=== PATIENT | male | born 1955 | race American Indian/Alaskan Native ===

== ENCOUNTER 2022-10-07 04:43 | Emergency (ER) | payer MEDICARE ==
[2022-10-07 05:00] VITALS: BP 190/87; PULSE 91
[2022-10-07 06:03] LABS: ESTIMATED GFR 103 mL/min (>60)
[2022-10-07 06:04] LABS: TROPONIN I HIGH SENSITIVITY 87.2 pg/mL (<=60.3)
[2022-10-07] MEDS ORDERED: LORazepam 1 MG Tab PO ONE (06:45)
== END 2022-10-07 06:56 | disposition home or self-care (01) ==
LOC: JP.ED 04:43
DX: M54.2 Cervicalgia (principal); G89.29 Other chronic pain; G56.90 Unspecified mononeuropathy of unspecified upper limb
CPT/HCPCS: 36415; 71046; 72040; 80053; 84443; 84484; 85025; 86140; 93005; 99284; A9270

== ENCOUNTER 2023-05-05 19:39 | Emergency (ER) | payer MEDICARE ==
[2023-05-05] MEDS ORDERED: Morphine 2 MG/ML SYRINGE IVPUSH ONE ×2 (19:43→20:29)
[2023-05-05] MEDS ORDERED: Naloxone 0.4 MG/ML SDV IVPUSH PRN ×2 (19:43→20:29)
[2023-05-05 19:45] LABS: BASOPHILS ABSOLUTE AUTO 0.05 K/uL (0.00-0.10); BASOPHILS PERCENT AUTO 0.3 % (0.1-1.3); EOSINOPHILS ABSOLUTE AUTO 0.18 K/uL (0.00-0.40); EOSINOPHILS PERCENT AUTO 1.2 % (0.0-5.4); HEMATOCRIT 36.9 % (38.4-49.7); HEMOGLOBIN 12.5 g/dL (12.9-16.9); IMMATURE GRAN PERCENT AUTO 0.8 % (0.0-0.7); LYMPHOCYTES ABSOLUTE AUTO 1.77 K/uL (0.8-3.3); LYMPHOCYTES PERCENT AUTO 12.1 % (11.4-47.7); MEAN CORPUSCULAR HEMOGLOBIN 30.6 pg (31.6-35.5); MEAN CORPUSCULAR HGB CONC 33.9 g/dL (31.6-35.5); MEAN CORPUSCULAR VOLUME 90.2 fL (81.4-99.0); MONOCYTES PERCENT AUTO 6.2 % (3.3-12.6); NEUTROPHILS ABSOLUTE AUTO 11.61 K/uL (1.0-7.6); NEUTROPHILS PERCENT AUTO 79.4 % (40.0-78.1); PLATELET COUNT,PLT 193 K/uL (130-375); RED BLOOD CELL COUNT 4.09 M/uL (4.14-5.76); WHITE BLOOD CELL COUNT,WBC 14.6 K/uL (3.2-11.0)
[2023-05-05 19:46] LABS: IMMATURE GRAN ABSOLUTE AUTO 0.11 K/uL (0.00-0.23)
[2023-05-05 20:09] LABS: ANION GAP 14.7 mmol/L (5.0-14.0); CALCIUM 8.3 mg/dL (8.5-10.1); CREATININE 0.8 mg/dL (0.8-1.3); EST CRCL DRUG DOSING (CG) 83.07 mL/min; POTASSIUM,K 4.7 mmol/L (3.6-5.2)
[2023-05-05] MEDS ORDERED: Heparin Sodium 5,000 Units/ML Vial IVPUSH ONE (20:25)
[2023-05-05] MEDS ORDERED: atorvaSTATin 20 MG Tab PO ONE (20:25)
[2023-05-05 20:57] VITALS: BP 117/66; PULSE 83
[2023-05-05] MEDS ORDERED: Heparin Sodium/D5W 25,000 UNITS/500 ML BAG IV SCH (21:00)
== END 2023-05-05 21:05 | disposition other institution (70) ==
LOC: JP.ED 19:39
DX: I21.3 ST elevation (STEMI) myocardial infarction of unspecified site (principal); I10 Essential (primary) hypertension; J44.9 Chronic obstructive pulmonary disease, unspecified; F17.210 Nicotine dependence, cigarettes, uncomplicated; Z79.01 Long term (current) use of anticoagulants; Z91.041 Radiographic dye allergy status
CPT/HCPCS: 36415; 71045; 71045-26; 80048; 84484; 85025; 93005; 93010; 96374; 96375; 96376; 99285; 99285-25; A9270-GY; J1644; J2270

== ENCOUNTER 2023-05-07 04:14 | Emergency (ER) | payer MEDICARE ==
[2023-05-07 04:27] LABS: BASOPHILS PERCENT AUTO 0.1 % (0.1-1.3); HEMATOCRIT 33.1 % (38.4-49.7); HEMOGLOBIN 11.3 g/dL (12.9-16.9); IMMATURE GRAN PERCENT AUTO 0.6 % (0.0-0.7); MEAN CORPUSCULAR HEMOGLOBIN 30.2 pg (31.6-35.5); MEAN CORPUSCULAR HGB CONC 34.1 g/dL (31.6-35.5); MEAN CORPUSCULAR VOLUME 88.5 fL (81.4-99.0); MONOCYTES ABSOLUTE AUTO 1.03 K/uL (0.20-0.90); MONOCYTES PERCENT AUTO 6.2 % (3.3-12.6); NEUTROPHILS ABSOLUTE AUTO 14.54 K/uL (1.0-7.6); NEUTROPHILS PERCENT AUTO 87.1 % (40.0-78.1); PLATELET COUNT,PLT 187 K/uL (130-375); RED BLOOD CELL COUNT 3.74 M/uL (4.14-5.76); WHITE BLOOD CELL COUNT,WBC 16.7 K/uL (3.2-11.0)
[2023-05-07 04:28] LABS: BASOPHILS ABSOLUTE AUTO 0.02 K/uL (0.00-0.10)
[2023-05-07] MEDS ORDERED: diphenhydrAMINE 50 MG/ML SDV IVPUSH ONE (04:50)
[2023-05-07 04:51] LABS: ANION GAP 17.5 mmol/L (5.0-14.0); CALCIUM 8.3 mg/dL (8.5-10.1); CREATININE 0.8 mg/dL (0.8-1.3); EST CRCL DRUG DOSING (CG) 83.07 mL/min; POTASSIUM,K 3.5 mmol/L (3.6-5.2)
[2023-05-07] MEDS ORDERED: Iopamidol 755 Mg/ML 100 ML Bottle IV STA (05:06)
[2023-05-07] MEDS ORDERED: Sodium Chloride 0.9% 100 ML IV STA (05:07)
[2023-05-07] MEDS ORDERED: Naloxone 0.4 MG/ML SDV IVPUSH PRN (06:40)
[2023-05-07] MEDS ORDERED: HYDROmorphone 0.5 MG/0.5 ML Syringe IVPUSH ONE (06:40)
[2023-05-07 07:51] VITALS: BP 110/72; PULSE 92
[2023-05-07] MEDS ORDERED: Lidocaine 4% Top Soln 50 ML Bottle MUCMEM ONE (08:15)
== END 2023-05-07 11:20 | disposition left against medical advice (07) ==
LOC: JP.ED 04:14
DX: K56.609 Unspecified intestinal obstruction, unspecified as to partial versus complete obstruction (principal); I10 Essential (primary) hypertension; J44.9 Chronic obstructive pulmonary disease, unspecified; I25.2 Old myocardial infarction; F17.210 Nicotine dependence, cigarettes, uncomplicated; Z79.82 Long term (current) use of aspirin; Z79.899 Other long term (current) drug therapy; Z91.041 Radiographic dye allergy status
CPT/HCPCS: 36415; 74175; 80048; 84484; 85025; 93005; 93010; 96374; 96375; 99285; 99285-25; J1170; J1200; J3490; Q9967

== ENCOUNTER 2023-05-08 02:40 | Emergency (ER) | payer MEDICARE ==
[2023-05-08 02:58] LABS: BASOPHILS ABSOLUTE AUTO 0.02 K/uL (0.00-0.10); BASOPHILS PERCENT AUTO 0.1 % (0.1-1.3); EOSINOPHILS ABSOLUTE AUTO 0.01 K/uL (0.00-0.40); EOSINOPHILS PERCENT AUTO 0.1 % (0.0-5.4); HEMATOCRIT 32.2 % (38.4-49.7); HEMOGLOBIN 10.9 g/dL (12.9-16.9); IMMATURE GRAN ABSOLUTE AUTO 0.07 K/uL (0.00-0.23); IMMATURE GRAN PERCENT AUTO 0.5 % (0.0-0.7); LYMPHOCYTES PERCENT AUTO 9.1 % (11.4-47.7); MEAN CORPUSCULAR HEMOGLOBIN 30.4 pg (31.6-35.5); MEAN CORPUSCULAR HGB CONC 33.9 g/dL (31.6-35.5); MEAN CORPUSCULAR VOLUME 89.7 fL (81.4-99.0); MONOCYTES ABSOLUTE AUTO 0.94 K/uL (0.20-0.90); MONOCYTES PERCENT AUTO 6.6 % (3.3-12.6); NEUTROPHILS ABSOLUTE AUTO 11.89 K/uL (1.0-7.6); NEUTROPHILS PERCENT AUTO 83.6 % (40.0-78.1); PLATELET COUNT,PLT 183 K/uL (130-375); RED BLOOD CELL COUNT 3.59 M/uL (4.14-5.76); WHITE BLOOD CELL COUNT,WBC 14.2 K/uL (3.2-11.0)
[2023-05-08 03:22] LABS: ALANINE AMINOTRANSFERASE,ALT 32 U/L (12-78); ALBUMIN 3.1 g/dL (3.4-5.0); ALKALINE PHOSPHATASE 59 U/L (46-116); ASPARTATE AMNIOTRANSFERASE,AST 36 U/L (15-37); BILIRUBIN TOTAL 0.7 mg/dL (0.2-1.0); BLOOD UREA NITROGEN,BUN 22 mg/dL (7-18); C-REACTIVE PROTEIN 1.49 mg/dL (0.0-0.3); CALCIUM 8.2 mg/dL (8.5-10.1); CARBON DIOXIDE,CO2 26 mmol/L (21-32); CHLORIDE,CL 103 mmol/L (100-108); CREATININE 0.8 mg/dL (0.8-1.3); EST CRCL DRUG DOSING (CG) 83.07 mL/min; ESTIMATED GFR 98 mL/min (>60); GLUCOSE RANDOM 135 mg/dL (74-106); POTASSIUM,K 3.5 mmol/L (3.6-5.2); PROTEIN TOTAL,TP 6.3 g/dL (6.4-8.2); SODIUM,NA 139 mmol/L (140-148)
[2023-05-08 03:25] LABS: ANION GAP 13.5 mmol/L (5.0-14.0)
[2023-05-08] MEDS ORDERED: Acetaminophen 1,000 MG in Premix Bag 1 BAG IV ONE (03:31)
[2023-05-08] MEDS ORDERED: Lidocaine 4% Top Soln 50 ML Bottle MUCMEM ONE (03:44)
[2023-05-08] MEDS ORDERED: Lidocaine 2% Jelly 10 ML Urojet MUCMEM ONE (04:26)
[2023-05-08] MEDS: Lidocaine 2% Jelly 10 ML Urojet ONE ×2 (04:26→04:27)
[2023-05-08] MEDS ORDERED: LORazepam 2 MG/ML SDV ONE (04:39)
[2023-05-08] MEDS ORDERED: LORazepam 2 MG/ML SDV IVPUSH ONE ×2 (04:39→06:38)
[2023-05-08] MEDS ORDERED: Phenol/Sodium Phenolate Spray 180 ML Bottle MUCMEM PRN (04:59)
[2023-05-08] MEDS ORDERED: Benzocaine/Cetylpyridinium/Menthol Lozenge MUCMEM ONE (04:59)
[2023-05-08 06:14] VITALS: PULSE 77
[2023-05-08] MEDS ORDERED: Sodium Chloride 0.9% 1,000 ML IV SCH (06:15)
[2023-05-08 06:45] VITALS: BP 118/79
== END 2023-05-08 07:22 ==
LOC: JP.ED 02:40
DX: K56.609 Unspecified intestinal obstruction, unspecified as to partial versus complete obstruction (principal); I10 Essential (primary) hypertension; I25.2 Old myocardial infarction; J44.9 Chronic obstructive pulmonary disease, unspecified; Z91.041 Radiographic dye allergy status; Z79.01 Long term (current) use of anticoagulants; Z79.899 Other long term (current) drug therapy; Z79.82 Long term (current) use of aspirin
CPT/HCPCS: 36415; 43752; 74018; 74018-26; 74176; 80053; 83605; 84484; 85025; 86140; 93005; 93010; 96361; 96365; 96375; 96376; 99284; 99285-25; A9270-GY; J0131; J2060; J7030

== ENCOUNTER 2023-06-06 06:43 | Emergency (ER) | payer MEDICARE ==
[2023-06-06 06:51] VITALS: BP 121/62
[2023-06-06] MEDS ORDERED: Albuterol/Ipratropium 3.0-0.5 MG/3 ML Neb Soln NEB ONE (07:45)
[2023-06-06 07:56] LABS: BASE EXCESS VENOUS 0.4 mm/L; BICARBONATE,VENOUS 23.8 mmol/L; CARBOXYHEMOGLOBIN 4.2 % (0.0-1.6); METHEMOGLOBIN 0.9 %; O2 SATURATION VENOUS 37.5; OXYHEMOGLOBIN 35.6 %; PCO2 VENOUS 35.5 mm/Hg; PH,VENOUS 7.441 (7.350-7.450); TOTAL HEMOGLOBIN 11.7 g/dL (13.5-18.0)
[2023-06-06 07:57] LABS: PO2 VENOUS 22.3 mm/Hg
[2023-06-06 07:58] LABS: BASOPHILS ABSOLUTE AUTO 0.03 K/uL (0.00-0.10); BASOPHILS PERCENT AUTO 0.3 % (0.1-1.3); EOSINOPHILS ABSOLUTE AUTO 0.11 K/uL (0.00-0.40); EOSINOPHILS PERCENT AUTO 1.2 % (0.0-5.4); HEMATOCRIT 34.1 % (38.4-49.7); HEMOGLOBIN 11.3 g/dL (12.9-16.9); IMMATURE GRAN ABSOLUTE AUTO 0.03 K/uL (0.00-0.23); IMMATURE GRAN PERCENT AUTO 0.3 % (0.0-0.7); LYMPHOCYTES ABSOLUTE AUTO 1.06 K/uL (0.8-3.3); LYMPHOCYTES PERCENT AUTO 11.7 % (11.4-47.7); MEAN CORPUSCULAR HEMOGLOBIN 29.7 pg (31.6-35.5); MEAN CORPUSCULAR HGB CONC 33.1 g/dL (31.6-35.5); MEAN CORPUSCULAR VOLUME 89.5 fL (81.4-99.0); MONOCYTES ABSOLUTE AUTO 0.54 K/uL (0.20-0.90); NEUTROPHILS ABSOLUTE AUTO 7.28 K/uL (1.0-7.6); NEUTROPHILS PERCENT AUTO 80.5 % (40.0-78.1); PLATELET COUNT,PLT 157 K/uL (130-375); RED BLOOD CELL COUNT 3.81 M/uL (4.14-5.76); WHITE BLOOD CELL COUNT,WBC 9.1 K/uL (3.2-11.0)
[2023-06-06 07:59] VITALS: PULSE 81
[2023-06-06 08:16] LABS: ANION GAP 12.4 mmol/L (5.0-14.0); C-REACTIVE PROTEIN 0.74 mg/dL (<0.50); CALCIUM 8.5 mg/dL (8.5-10.1); CREATININE 0.7 mg/dL (0.8-1.3); EST CRCL DRUG DOSING (CG) 94.94 mL/min
== END 2023-06-06 09:37 | disposition home or self-care (01) ==
LOC: JP.ED 06:43
DX: F41.9 Anxiety disorder, unspecified (principal); I10 Essential (primary) hypertension; I25.2 Old myocardial infarction; J44.9 Chronic obstructive pulmonary disease, unspecified; F17.210 Nicotine dependence, cigarettes, uncomplicated; Z95.5 Presence of coronary angioplasty implant and graft; Z79.82 Long term (current) use of aspirin; Z79.899 Other long term (current) drug therapy; Z91.041 Radiographic dye allergy status
CPT/HCPCS: 36415; 71046; 71046-26; 80048; 82803; 83605; 85025; 86140; 94640; 99285; J7620

== ENCOUNTER 2023-06-14 01:56 | Inpatient (IN) | payer MEDICARE ==
[2023-06-14] MEDS ORDERED: Sodium Chloride 0.9% 10 ML Syringe FLUSH PRN (01:57)
[2023-06-14] MEDS ORDERED: Dexamethasone 4 MG/ML SDV IVPUSH ONE (02:00)
[2023-06-14] MEDS ORDERED: Albuterol/Ipratropium 3.0-0.5 MG/3 ML Neb Soln NEB ONE (02:00)
[2023-06-14 02:04] LABS: BASOPHILS ABSOLUTE AUTO 0.06 K/uL (0.00-0.10); BASOPHILS PERCENT AUTO 0.8 % (0.1-1.3); EOSINOPHILS ABSOLUTE AUTO 0.17 K/uL (0.00-0.40); EOSINOPHILS PERCENT AUTO 2.3 % (0.0-5.4); HEMATOCRIT 35.9 % (38.4-49.7); HEMOGLOBIN 11.5 g/dL (12.9-16.9); IMMATURE GRAN ABSOLUTE AUTO 0.03 K/uL (0.00-0.23); IMMATURE GRAN PERCENT AUTO 0.4 % (0.0-0.7); LYMPHOCYTES ABSOLUTE AUTO 1.29 K/uL (0.8-3.3); LYMPHOCYTES PERCENT AUTO 17.2 % (11.4-47.7); MEAN CORPUSCULAR HEMOGLOBIN 28.8 pg (31.6-35.5); MONOCYTES ABSOLUTE AUTO 0.53 K/uL (0.20-0.90); MONOCYTES PERCENT AUTO 7.1 % (3.3-12.6); NEUTROPHILS ABSOLUTE AUTO 5.43 K/uL (1.0-7.6); NEUTROPHILS PERCENT AUTO 72.2 % (40.0-78.1); PLATELET COUNT,PLT 168 K/uL (130-375); RED BLOOD CELL COUNT 3.99 M/uL (4.14-5.76); WHITE BLOOD CELL COUNT,WBC 7.5 K/uL (3.2-11.0)
[2023-06-14] MEDS ORDERED: LORazepam 2 MG/ML SDV IVPUSH ONE ×2 (02:10→02:51)
[2023-06-14 02:30] LABS: ALANINE AMINOTRANSFERASE,ALT 24 U/L (12-78); ALBUMIN 3.4 g/dL (3.4-5.0); ALKALINE PHOSPHATASE 84 U/L (46-116); ANION GAP 10.5 mmol/L (5.0-14.0); ASPARTATE AMNIOTRANSFERASE,AST 17 U/L (15-37); BILIRUBIN TOTAL 0.5 mg/dL (0.2-1.0); BLOOD UREA NITROGEN,BUN 17 mg/dL (7-18); CALCIUM 8.4 mg/dL (8.5-10.1); CARBON DIOXIDE,CO2 26 mmol/L (21-32); CHLORIDE,CL 106 mmol/L (100-108); EST CRCL DRUG DOSING (CG) 67.66 mL/min; ESTIMATED GFR 84 mL/min (>60); GLUCOSE RANDOM 113 mg/dL (74-106); POTASSIUM,K 3.8 mmol/L (3.6-5.2); PRO B-TYPE NATRIUR PEPT,BNPPRO 5088 pg/mL (5-125); PROTEIN TOTAL,TP 6.7 g/dL (6.4-8.2); SODIUM,NA 142 mmol/L (140-148); TROPONIN I HIGH SENSITIVITY 50.3 pg/mL (<=60.3)
[2023-06-14 02:32] LABS: C-REACTIVE PROTEIN < 0.50 mg/dL (<0.50)
[2023-06-14] MEDS ORDERED: Furosemide 40 MG/4 ML VIAL IVPUSH ONE (02:51)
[2023-06-14 03:18] LABS: CORONAVIRUS COVID-19 NAA NEGATIVE (NEGATIVE); INFLUENZA A NAA NEGATIVE (NEGATIVE); INFLUENZA B NAA NEGATIVE (NEGATIVE); RESPIRATORY SYNCYTIAL VIR NAA NEGATIVE (NEGATIVE)
[2023-06-14] MEDS ORDERED: Docusate Sodium 100 MG Cap PO PRN (05:06)
[2023-06-14] MEDS ORDERED: Nitroglycerin 0.4 MG Tab.SL SL PRN (05:06)
[2023-06-14] MEDS ORDERED: Sodium Chloride 0.9% 1,000 ML IV SCH (05:06)
[2023-06-14] MEDS ORDERED: Bisacodyl 10 MG Supp RECTAL PRN (05:06)
[2023-06-14] MEDS ORDERED: Doxycycline 100 MG Cap PO SCH ×2 (05:06→21:00)
[2023-06-14] MEDS ORDERED: Calcium Carbonate 500 MG Tab.Chew PO PRN (05:06)
[2023-06-14] MEDS ORDERED: Doxycycline 100 MG Cap PO ONE (05:15)
[2023-06-14 05:24] LABS: APPEARANCE,URINE CLEAR (CLEAR); BILIRUBIN,URINE NEGATIVE (NEGATIVE); COLOR,URINE YELLOW (YELLOW); GLUCOSE,URINE NEGATIVE (NEGATIVE); KETONES,URINE NEGATIVE (NEGATIVE); LEUKOCYTE ESTERASE,URINE NEGATIVE (NEGATIVE); NITRITE,URINE NEGATIVE (NEGATIVE); OCCULT BLOOD,URINE NEGATIVE (NEGATIVE); PROTEIN,URINE NEGATIVE (NEGATIVE); UROBILINOGEN,URINE 0.2 EU/dL (0.2-1.0)
[2023-06-14] MEDS ORDERED: Nicotine 21 MG/24 Hr Patch TRDERM ONE (05:30)
[2023-06-14] MEDS: methylPREDNISolone Sodium Succinate 125 MG/2 ML SDV IV SCH ×3 (05:35→17:40)
[2023-06-14] MEDS: Furosemide 20 MG/2 ML VIAL IVPUSH SCH ×2 (05:35→17:36)
[2023-06-14] MEDS ORDERED: Naloxone 0.4 MG/ML SDV IVPUSH PRN (05:40)
[2023-06-14] MEDS ORDERED: Morphine 2 MG/ML SYRINGE IVPUSH ONE (05:40)
[2023-06-14 05:58] LABS: AMORPHOUS SEDIMENT,URINE NOT SEEN; BACTERIA,URINE FEW; EPITHELIAL CELLS,URINE RARE; MUCUS,URINE NOT SEEN; RBC,URINE 0-5 (0-5); WBC,URINE 0-5 (0-5)
[2023-06-14] MEDS ORDERED: Metoprolol Tartrate 25 MG Tab PO SCH (06:00)
[2023-06-14] MEDS ORDERED: Enoxaparin 40 MG/0.4 ML Syringe SUBCUT SCH (06:00)
[2023-06-14] MEDS ORDERED: Albuterol/Ipratropium 3.0-0.5 MG/3 ML Neb Soln NEB SCH (06:00)
[2023-06-14] MEDS ORDERED: cefTRIAXone 1 GM in Sodium Chloride 0.9% 50 ML IV SCH (06:00)
[2023-06-14 08:52] LABS: CALCIUM 8.6 mg/dL (8.5-10.1); CREATININE 0.9 mg/dL (0.8-1.3); EST CRCL DRUG DOSING (CG) 75.17 mL/min; MAGNESIUM 2.2 mg/dL (1.8-2.4); POTASSIUM,K 3.5 mmol/L (3.6-5.2)
[2023-06-14 08:53] LABS: ANION GAP 14.5 mmol/L (5.0-14.0)
[2023-06-14] MEDS ORDERED: ALPRAZolam 0.5 MG Tab PO SCH (09:00)
[2023-06-14] MEDS ORDERED: VALSARTAN 40 MG PO SCH (09:00)
[2023-06-14] MEDS ORDERED: ALPRAZOLAM 0.25 MG PO SCH (09:00)
[2023-06-14] MEDS: Aspirin 81 MG Tab.EC PO SCH (09:23)
[2023-06-14] MEDS: Acetaminophen 500 MG Tab PO SCH ×2 (09:23→21:10)
[2023-06-14] MEDS: Ticagrelor 90 MG Tab PO SCH ×2 (09:23→21:10)
[2023-06-14] MEDS: Multivitamins with Iron/Calcium/Folic Acid/Minerals Tab PO SCH (09:23)
[2023-06-14] MEDS: Escitalopram 10 MG Tab PO SCH (09:23)
[2023-06-14] MEDS: Tamsulosin 0.4 MG Cap.ER PO SCH (09:24)
[2023-06-14] MEDS: ClonazePAM 1 MG Tab PO SCH ×3 (09:26→21:09)
[2023-06-14] MEDS ORDERED: ALPRAZolam 0.25 MG Tab PO PRN (09:41)
[2023-06-14] MEDS: Albuterol/Ipratropium 3.0-0.5 MG/3 ML Neb Soln NEB SCH ×3 (10:24→21:09)
[2023-06-14] MEDS: Metoprolol Succinate 50 MG Tab.ER PO SCH (11:09)
[2023-06-14] MEDS ORDERED: Potassium Chloride 20 MEQ Tab.ER PO ONE ×2 (11:10→17:00)
[2023-06-14] MEDS: Losartan 25 MG Tab PO SCH (12:14)
[2023-06-14] MEDS ORDERED: atorvaSTATin 20 MG Tab PO SCH (21:00)
[2023-06-14] MEDS ORDERED: traZODone 50 MG Tab PO SCH (21:00)
[2023-06-15] MEDS: methylPREDNISolone Sodium Succinate 125 MG/2 ML SDV IV SCH ×2 (00:11→05:41)
[2023-06-15 05:36] LABS: CALCIUM 8.8 mg/dL (8.5-10.1); EST CRCL DRUG DOSING (CG) 67.66 mL/min; POTASSIUM,K 4.5 mmol/L (3.6-5.2)
[2023-06-15 05:37] LABS: ANION GAP 15.5 mmol/L (5.0-14.0)
[2023-06-15] MEDS: Furosemide 20 MG/2 ML VIAL IVPUSH SCH (05:55)
[2023-06-15] MEDS: Albuterol/Ipratropium 3.0-0.5 MG/3 ML Neb Soln NEB SCH ×2 (07:08→10:25)
[2023-06-15] MEDS: Ticagrelor 90 MG Tab PO SCH (08:39)
[2023-06-15] MEDS: Losartan 25 MG Tab PO SCH (08:39)
[2023-06-15] MEDS: Escitalopram 10 MG Tab PO SCH (08:39)
[2023-06-15] MEDS: Tamsulosin 0.4 MG Cap.ER PO SCH (08:39)
[2023-06-15] MEDS: Aspirin 81 MG Tab.EC PO SCH (08:40)
[2023-06-15] MEDS: Multivitamins with Iron/Calcium/Folic Acid/Minerals Tab PO SCH (08:40)
[2023-06-15] MEDS: Metoprolol Succinate 50 MG Tab.ER PO SCH (08:41)
[2023-06-15] MEDS: Acetaminophen 500 MG Tab PO SCH (08:41)
[2023-06-15] MEDS: ClonazePAM 1 MG Tab PO SCH (08:48)
[2023-06-15] MEDS ORDERED: Nicotine 21 MG/24 Hr Patch TRDERM SCH (09:00)
[2023-06-15] MEDS ORDERED: Enoxaparin 40 MG/0.4 ML Syringe SUBCUT SCH (09:00)
[2023-06-15] MEDS ORDERED: predniSONE 20 MG Tab PO ONE (11:00)
[2023-06-15 13:23] VITALS: BP 106/66; PULSE 90
== END 2023-06-15 13:50 | disposition home or self-care (01) | DRG 291 ==
LOC: JP.ED 01:56 → JP.2SS 04:38
PROVIDERS: ADMIT Hospitalist; ATTEND Internal Medicine
DX: I11.0 Hypertensive heart disease with heart failure (principal); I50.43 Acute on chronic combined systolic (congestive) and diastolic (congestive) heart failure; J44.1 Chronic obstructive pulmonary disease with (acute) exacerbation; I25.10 Atherosclerotic heart disease of native coronary artery without angina pectoris; Z66 Do not resuscitate; Z79.01 Long term (current) use of anticoagulants; N40.0 Benign prostatic hyperplasia without lower urinary tract symptoms; G89.29 Other chronic pain; M54.2 Cervicalgia; F17.210 Nicotine dependence, cigarettes, uncomplicated; Z20.822 Contact with and (suspected) exposure to COVID-19; M54.9 Dorsalgia, unspecified; E11.9 Type 2 diabetes mellitus without complications; F41.8 Other specified anxiety disorders; Z95.5 Presence of coronary angioplasty implant and graft; Z91.041 Radiographic dye allergy status; Z79.899 Other long term (current) drug therapy; Z79.82 Long term (current) use of aspirin; I25.2 Old myocardial infarction; Z87.81 Personal history of (healed) traumatic fracture; Z98.890 Other specified postprocedural states; Z11.52 Encounter for screening for COVID-19
CPT/HCPCS: 0241U; 36415; 71045; 80048; 80053; 81001; 83690; 83735; 83880; 84145; 84484; 85025; 86140; 93005; 94640; 96374; 96375; 96376; 99285-25; A9270-GY; J0696; J1100; J1650; J1940; J2060; J2270; J2930; J3490; J7030; J7512; J7620

== ENCOUNTER 2023-06-23 06:52 | Inpatient (IN) | payer MEDICARE ==
[2023-06-23 07:57] LABS: BASOPHILS ABSOLUTE AUTO 0.04 K/uL (0.00-0.10); BASOPHILS PERCENT AUTO 0.3 % (0.1-1.3); EOSINOPHILS ABSOLUTE AUTO 0.09 K/uL (0.00-0.40); EOSINOPHILS PERCENT AUTO 0.7 % (0.0-5.4); HEMATOCRIT 34.8 % (38.4-49.7); HEMOGLOBIN 11.4 g/dL (12.9-16.9); IMMATURE GRAN ABSOLUTE AUTO 0.09 K/uL (0.00-0.23); IMMATURE GRAN PERCENT AUTO 0.7 % (0.0-0.7); LYMPHOCYTES ABSOLUTE AUTO 1.02 K/uL (0.8-3.3); LYMPHOCYTES PERCENT AUTO 8.4 % (11.4-47.7); MEAN CORPUSCULAR HEMOGLOBIN 28.9 pg (31.6-35.5); MEAN CORPUSCULAR HGB CONC 32.8 g/dL (31.6-35.5); MEAN CORPUSCULAR VOLUME 88.1 fL (81.4-99.0); MONOCYTES ABSOLUTE AUTO 0.81 K/uL (0.20-0.90); MONOCYTES PERCENT AUTO 6.6 % (3.3-12.6); NEUTROPHILS ABSOLUTE AUTO 10.16 K/uL (1.0-7.6); NEUTROPHILS PERCENT AUTO 83.3 % (40.0-78.1); PLATELET COUNT,PLT 165 K/uL (130-375); RED BLOOD CELL COUNT 3.95 M/uL (4.14-5.76); WHITE BLOOD CELL COUNT,WBC 12.2 K/uL (3.2-11.0)
[2023-06-23 08:24] LABS: CALCIUM 8.3 mg/dL (8.5-10.1); CREATININE 0.7 mg/dL (0.8-1.3); EST CRCL DRUG DOSING (CG) 94.94 mL/min; POTASSIUM,K 3.9 mmol/L (3.6-5.2)
[2023-06-23 08:25] LABS: ANION GAP 10.9 mmol/L (5.0-14.0)
[2023-06-23] MEDS ORDERED: Furosemide 40 MG/4 ML VIAL IVPUSH ONE (08:46)
[2023-06-23] MEDS ORDERED: LORazepam 2 MG/ML SDV IVPUSH ONE ×2 (08:49→10:11)
[2023-06-23] MEDS ORDERED: Albuterol/Ipratropium 3.0-0.5 MG/3 ML Neb Soln NEB ONE (09:08)
[2023-06-23 14:03] LABS: CORONAVIRUS COVID-19 NAA NEGATIVE (NEGATIVE); INFLUENZA A NAA NEGATIVE (NEGATIVE); INFLUENZA B NAA NEGATIVE (NEGATIVE); RESPIRATORY SYNCYTIAL VIR NAA NEGATIVE (NEGATIVE)
[2023-06-23] MEDS ORDERED: Ondansetron 4 MG/2 ML SDV IV PRN (14:30)
[2023-06-23] MEDS ORDERED: Polyethylene Glycol 3350 Powder 17 GM Packet PO PRN (14:30)
[2023-06-23] MEDS ORDERED: Albuterol/Ipratropium 3.0-0.5 MG/3 ML Neb Soln NEB PRN (14:30)
[2023-06-23] MEDS ORDERED: Sodium Chloride 0.9% 10 ML Syringe FLUSH PRN (14:30)
[2023-06-23] MEDS: Enoxaparin 40 MG/0.4 ML Syringe SUBCUT SCH (15:22)
[2023-06-23] MEDS: ClonazePAM 1 MG Tab PO SCH ×2 (15:22→21:05)
[2023-06-23] MEDS: IPRATROPIUM INH SCH ×2 (16:59→21:03)
[2023-06-23] MEDS: Furosemide 40 MG/4 ML VIAL IVPUSH SCH (17:54)
[2023-06-23] MEDS ORDERED: Non-Formulary Medication 1 Each (Trazodone [Trazodone] 100 MG Tablet) PO SCH (21:00)
[2023-06-23] MEDS ORDERED: Non-Formulary Medication 1 Each (Atorvastatin Calcium [Lipitor] 40 MG Tablet) PO SCH (21:00)
[2023-06-23] MEDS: atorvaSTATin 20 MG Tab PO SCH (21:02)
[2023-06-23] MEDS: Ticagrelor 90 MG Tab PO SCH (21:03)
[2023-06-23] MEDS: traZODone 50 MG Tab PO SCH (21:03)
[2023-06-24] MEDS: IPRATROPIUM INH SCH ×4 (03:21→21:03)
[2023-06-24] MEDS: Acetaminophen 325 MG Tab PO PRN ×3 (03:25→21:01)
[2023-06-24] MEDS: traMADol 50 MG Tab PO PRN ×2 (03:26→21:01)
[2023-06-24 06:10] LABS: HEMATOCRIT 32.1 % (38.4-49.7); HEMOGLOBIN 10.6 g/dL (12.9-16.9); MEAN CORPUSCULAR HEMOGLOBIN 28.6 pg (31.6-35.5); MEAN CORPUSCULAR VOLUME 86.8 fL (81.4-99.0); RED BLOOD CELL COUNT 3.7 M/uL (4.14-5.76); WHITE BLOOD CELL COUNT,WBC 8.6 K/uL (3.2-11.0)
[2023-06-24] MEDS: Furosemide 40 MG/4 ML VIAL IVPUSH SCH ×2 (06:23→18:20)
[2023-06-24 06:24] LABS: CALCIUM 8.2 mg/dL (8.5-10.1); CREATININE 0.8 mg/dL (0.8-1.3); EST CRCL DRUG DOSING (CG) 83.07 mL/min; POTASSIUM,K 3.6 mmol/L (3.6-5.2)
[2023-06-24 06:35] LABS: ANION GAP 10.6 mmol/L (5.0-14.0)
[2023-06-24] MEDS: ClonazePAM 1 MG Tab PO SCH ×3 (08:45→21:01)
[2023-06-24] MEDS: Ticagrelor 90 MG Tab PO SCH ×2 (08:45→21:03)
[2023-06-24] MEDS: Tamsulosin 0.4 MG Cap.ER PO SCH (08:46)
[2023-06-24] MEDS: Metoprolol Succinate 50 MG Tab.ER PO SCH (08:46)
[2023-06-24] MEDS: Aspirin 81 MG Tab.Chew PO SCH (08:46)
[2023-06-24] MEDS: VALSARTAN 40 MG PO SCH (08:47)
[2023-06-24] MEDS ORDERED: Potassium Chloride 20 MEQ Tab.ER PO ONE ×2 (09:00→17:00)
[2023-06-24] MEDS ORDERED: Non-Formulary Medication 1 Each (Fluticasone/Vilanterol [Breo Ellipta 50-25 Mcg Inhaler] 1 INH SCH (09:00)
[2023-06-24] MEDS ORDERED: VALSARTAN 40 MG PO SCH (09:00)
[2023-06-24] MEDS ORDERED: Escitalopram 10 MG Tab PO SCH (09:00)
[2023-06-24] MEDS: Formoterol/Mometasone 200-5 MCG 8.8 GM Inhaler IH SCH ×2 (10:50→21:02)
[2023-06-24] MEDS: Enoxaparin 40 MG/0.4 ML Syringe SUBCUT SCH (16:05)
[2023-06-24] MEDS: atorvaSTATin 20 MG Tab PO SCH (21:03)
[2023-06-24] MEDS: traZODone 50 MG Tab PO SCH (21:03)
[2023-06-25] MEDS: IPRATROPIUM INH SCH ×2 (03:23→09:43)
[2023-06-25] MEDS: Furosemide 40 MG/4 ML VIAL IVPUSH SCH (05:54)
[2023-06-25 06:29] LABS: CALCIUM 8.5 mg/dL (8.5-10.1); CREATININE 0.9 mg/dL (0.8-1.3); EST CRCL DRUG DOSING (CG) 73.84 mL/min; POTASSIUM,K 3.9 mmol/L (3.6-5.2)
[2023-06-25 06:36] LABS: ANION GAP 12.9 mmol/L (5.0-14.0)
[2023-06-25] MEDS: Formoterol/Mometasone 200-5 MCG 8.8 GM Inhaler IH SCH (07:05)
[2023-06-25] MEDS: Ticagrelor 90 MG Tab PO SCH (08:34)
[2023-06-25] MEDS: Metoprolol Succinate 50 MG Tab.ER PO SCH (08:35)
[2023-06-25] MEDS: VALSARTAN 40 MG PO SCH (08:35)
[2023-06-25] MEDS: Aspirin 81 MG Tab.Chew PO SCH (08:36)
[2023-06-25] MEDS: Tamsulosin 0.4 MG Cap.ER PO SCH (08:36)
[2023-06-25] MEDS: ClonazePAM 1 MG Tab PO SCH (08:45)
[2023-06-25] MEDS ORDERED: Escitalopram 10 MG Tab PO SCH (09:00)
[2023-06-25 11:03] VITALS: BP 91/52
[2023-06-25 13:33] VITALS: PULSE 71
== END 2023-06-25 13:30 | disposition home or self-care (01) | DRG 291 ==
LOC: JP.ED 06:52 → JP.MS 12:04
PROVIDERS: ADMIT Hospitalist; ATTEND Hospitalist
DX: I11.0 Hypertensive heart disease with heart failure (principal); I50.43 Acute on chronic combined systolic (congestive) and diastolic (congestive) heart failure; I25.2 Old myocardial infarction; I25.10 Atherosclerotic heart disease of native coronary artery without angina pectoris; F41.9 Anxiety disorder, unspecified; J44.9 Chronic obstructive pulmonary disease, unspecified; N40.0 Benign prostatic hyperplasia without lower urinary tract symptoms; G89.29 Other chronic pain; M54.2 Cervicalgia; F17.210 Nicotine dependence, cigarettes, uncomplicated; Z95.5 Presence of coronary angioplasty implant and graft; Z79.82 Long term (current) use of aspirin; Z91.041 Radiographic dye allergy status; Z98.890 Other specified postprocedural states; Z79.01 Long term (current) use of anticoagulants; Z79.899 Other long term (current) drug therapy; Z91.040 Latex allergy status
CPT/HCPCS: 0241U; 36415; 71045; 80048; 83605; 83735; 83880; 85025; 85027; 86140; 93005; 93306; 94640; 96374; 96375; 96376; 97110; 97161; 97530; 99285; A9270-GY; J1650; J1940; J2060; J7620

== ENCOUNTER 2023-07-18 01:07 | Emergency (ER) | payer MEDICARE ==
[2023-07-18 01:20] VITALS: PULSE 56
[2023-07-18] MEDS ORDERED: traMADol 50 MG Tab PO ONE (01:27)
[2023-07-18 01:28] LABS: BASOPHILS ABSOLUTE AUTO 0.06 K/uL (0.00-0.10); BASOPHILS PERCENT AUTO 0.6 % (0.1-1.3); EOSINOPHILS ABSOLUTE AUTO 0.07 K/uL (0.00-0.40); EOSINOPHILS PERCENT AUTO 0.7 % (0.0-5.4); HEMATOCRIT 33.6 % (38.4-49.7); HEMOGLOBIN 10.9 g/dL (12.9-16.9); IMMATURE GRAN ABSOLUTE AUTO 0.04 K/uL (0.00-0.23); IMMATURE GRAN PERCENT AUTO 0.4 % (0.0-0.7); LYMPHOCYTES PERCENT AUTO 10.4 % (11.4-47.7); MEAN CORPUSCULAR HEMOGLOBIN 27.7 pg (31.6-35.5); MEAN CORPUSCULAR HGB CONC 32.4 g/dL (31.6-35.5); MEAN CORPUSCULAR VOLUME 85.3 fL (81.4-99.0); MONOCYTES ABSOLUTE AUTO 0.62 K/uL (0.20-0.90); MONOCYTES PERCENT AUTO 6.4 % (3.3-12.6); NEUTROPHILS ABSOLUTE AUTO 7.86 K/uL (1.0-7.6); NEUTROPHILS PERCENT AUTO 81.5 % (40.0-78.1); PLATELET COUNT,PLT 136 K/uL (130-375); RED BLOOD CELL COUNT 3.94 M/uL (4.14-5.76); WHITE BLOOD CELL COUNT,WBC 9.7 K/uL (3.2-11.0)
[2023-07-18 01:52] LABS: A/G RATIO 1.2 (1.2-2.2); ALANINE AMINOTRANSFERASE,ALT 22 U/L (12-78); ALBUMIN 3.6 g/dL (3.4-5.0); ALKALINE PHOSPHATASE 75 U/L (46-116); ANION GAP 12.2 mmol/L (5.0-14.0); ASPARTATE AMNIOTRANSFERASE,AST 20 U/L (15-37); BILIRUBIN TOTAL 1.1 mg/dL (0.2-1.0); BLOOD UREA NITROGEN,BUN 18 mg/dL (7-18); CALCIUM 8.3 mg/dL (8.5-10.1); CARBON DIOXIDE,CO2 25 mmol/L (21-32); CHLORIDE,CL 104 mmol/L (100-108); CREATININE 0.9 mg/dL (0.8-1.3); EST CRCL DRUG DOSING (CG) 79.17 mL/min; ESTIMATED GFR 95 mL/min (>60); GLUCOSE RANDOM 128 mg/dL (74-106); POTASSIUM,K 3.9 mmol/L (3.6-5.2); PROTEIN TOTAL,TP 6.6 g/dL (6.4-8.2); SODIUM,NA 141 mmol/L (140-148); TROPONIN I HIGH SENSITIVITY 52.4 pg/mL (<=60.3)
[2023-07-18 01:59] LABS: CORONAVIRUS COVID-19 NAA NEGATIVE (NEGATIVE); INFLUENZA A NAA NEGATIVE (NEGATIVE); INFLUENZA B NAA NEGATIVE (NEGATIVE); RESPIRATORY SYNCYTIAL VIR NAA NEGATIVE (NEGATIVE)
[2023-07-18 02:11] VITALS: BP 119/71
== END 2023-07-18 02:07 | disposition home or self-care (01) ==
LOC: JP.ED 01:07
DX: I11.0 Hypertensive heart disease with heart failure (principal); I50.42 Chronic combined systolic (congestive) and diastolic (congestive) heart failure; F06.4 Anxiety disorder due to known physiological condition; J44.9 Chronic obstructive pulmonary disease, unspecified; Z95.5 Presence of coronary angioplasty implant and graft; Z79.82 Long term (current) use of aspirin; Z79.899 Other long term (current) drug therapy; Z91.041 Radiographic dye allergy status
CPT/HCPCS: 0241U; 36415; 71046; 80053; 84484; 85025; 99285; A9270; 99284

== ENCOUNTER 2024-09-16 20:07 | Emergency (ER) | payer OTHER, MEDICARE ==
[2024-09-16] MEDS: Sodium Bicarbonate 8.4% 50 MEQ/50 ML Syringe IVPUSH ONE (20:26)
[2024-09-16 20:31] LABS: BASE EXCESS ARTERIAL -13.7 mm/L; BICARBONATE,ARTERIAL 17.6 mmol/L (22.0-26.0); METHEMOGLOBIN 1.2 %; O2 SATURATION ARTERIAL 92.6 % (95.0-98.0); OXYHEMOGLOBIN 86.9 %; TOTAL HEMOGLOBIN 11.1 g/dL (13.5-18.0)
[2024-09-16 20:32] LABS: HEMATOCRIT 37.4 % (38.4-49.7); HEMOGLOBIN 11.2 g/dL (12.9-16.9); MEAN CORPUSCULAR HEMOGLOBIN 25.1 pg (31.6-35.5); MEAN CORPUSCULAR HGB CONC 29.9 g/dL (31.6-35.5); MEAN CORPUSCULAR VOLUME 83.9 fL (81.4-99.0); PLATELET COUNT,PLT 135 K/uL (130-375); RED BLOOD CELL COUNT 4.46 M/uL (4.14-5.76); WHITE BLOOD CELL COUNT,WBC 13.8 K/uL (3.2-11.0)
[2024-09-16 20:32] LABS: PCO2 ARTERIAL 70.5 mmHg (35.0-42.0)
[2024-09-16 20:35] LABS: CALCIUM IONIZED,ISTAT 1.16 mmol/L (1.12-1.32); HEMATOCRIT,ISTAT 38 % (36-48); POTASSIUM,ISTAT 3.9 mmol/L (3.5-4.9); SODIUM,ISTAT 143 mmol/L (140-148)
[2024-09-16 20:36] LABS: BASE EXCESS ARTERIAL,ISTAT -12 mmol/L (-2-3); O2 SATURATION ARTERIAL,ISTAT 91 % (95-98); PH ARTERIAL,ISTAT 7.03 (7.35-7.45); PO2 ARTERIAL,ISTAT 92 mmHg (80-105); TCO2 ARTERIAL,ISTAT 21 mmol/L (23-27)
[2024-09-16 20:36] LABS: APPEARANCE,URINE CLEAR (CLEAR); BILIRUBIN,URINE NEGATIVE (NEGATIVE); COLOR,URINE YELLOW (YELLOW); GLUCOSE,URINE NEGATIVE (NEGATIVE); KETONES,URINE NEGATIVE (NEGATIVE); LEUKOCYTE ESTERASE,URINE NEGATIVE (NEGATIVE); NITRITE,URINE NEGATIVE (NEGATIVE); OCCULT BLOOD,URINE NEGATIVE (NEGATIVE); PH,URINE 5.5 (5.0-8.0); PROTEIN,URINE NEGATIVE (NEGATIVE); UROBILINOGEN,URINE 0.2 EU/dL (0.2-1.0)
[2024-09-16 20:37] LABS: ALLEN TEST, ISTAT PASS
[2024-09-16 20:40] LABS: AMPHETAMINES SCREEN, URINE NEGATIVE (NEGATIVE); BARBITURATE SCREEN,URINE NEGATIVE (NEGATIVE); BENZODIAZEPINES SCREEN,URINE NEGATIVE (NEGATIVE); METHADONE SCREEN, URINE NEGATIVE (NEGATIVE); METHAMPHETAMINES SCREEN, URINE NEGATIVE (NEGATIVE); OXYCODONE SCREEN,URINE NEGATIVE (NEGATIVE); PROPOXYPHENE SCREEN,URINE NEGATIVE (NEGATIVE); THC SCREEN,URINE 50 NG/ML PRESUMPTIVE POSITIVE (NEGATIVE)
[2024-09-16 20:44] LABS: A/G RATIO 0.9 (1.2-2.2); ALANINE AMINOTRANSFERASE,ALT 63 U/L (12-78); ALBUMIN 3.2 g/dL (3.4-5.0); ALKALINE PHOSPHATASE 267 U/L (46-116); ANION GAP 22.9 mmol/L (5.0-14.0); ASPARTATE AMNIOTRANSFERASE,AST 68 U/L (15-37); BILIRUBIN TOTAL 1.2 mg/dL (0.2-1.0); BLOOD UREA NITROGEN,BUN 21 mg/dL (7-18); CALCIUM 8.4 mg/dL (8.5-10.1); CARBON DIOXIDE,CO2 18 mmol/L (21-32); CHLORIDE,CL 107 mmol/L (100-108); CREATININE 1.3 mg/dL (0.8-1.3); ESTIMATED GFR 61 mL/min (>60); GLUCOSE RANDOM 257 mg/dL (74-106); POTASSIUM,K 3.9 mmol/L (3.6-5.2); PROTEIN TOTAL,TP 6.6 g/dL (6.4-8.2); SODIUM,NA 144 mmol/L (140-148)
[2024-09-16 20:45] LABS: TROPONIN I HIGH SENSITIVITY 68.3 pg/mL (<=60.3)
[2024-09-16] MEDS: diphenhydrAMINE 50 MG/ML SDV IVPUSH ONE (20:49)
[2024-09-16] MEDS: methylPREDNISolone Sodium Succinate 125 MG/2 ML SDV IVPUSH ONE (20:49)
[2024-09-16 20:50] LABS: AMORPHOUS SEDIMENT,URINE NOT SEEN; BACTERIA,URINE RARE; EPITHELIAL CELLS,URINE FEW; MUCUS,URINE FEW; RBC,URINE 0-5 (0-5); WBC,URINE 0-5 (0-5)
[2024-09-16 21:03] LABS: BAND ABSOLUTE MAN 0.69 K/uL; BAND PERCENT MAN 5 % (5-11); EOSINOPHILS ABSOLUTE MAN 0.14 K/uL (0.00-0.40); EOSINOPHILS PERCENT MAN 1 % (2-4); LYMPHOCYTES ABSOLUTE MAN 4.97 K/uL (0.8-3.3); LYMPHOCYTES PERCENT MAN 36 % (24-44); MONOCYTES ABSOLUTE MAN 0.55 K/uL (0.20-0.90); MONOCYTES PERCENT MAN 4 % (2-6); MYELOCYTE ABSOLUTE MAN 0.41; MYELOCYTE PERCENT MAN 3 %; NEUTROPHILS ABSOLUTE MAN 7.04 K/uL (1.0-7.6); SEG NEUTROPHILS PERCENT MAN 51 % (36-66)
[2024-09-16 21:05] LABS: ANISOCYTOSIS MODERATE
[2024-09-16 21:06] LABS: TARGET CELLS FEW
[2024-09-16 21:08] LABS: SPHEROCYTES FEW
[2024-09-16] MEDS: Sodium Chloride 0.9% 80 ML IV SCH (21:30)
[2024-09-16] MEDS: Iopamidol 612 MG/ML 100 ML Bottle IV SCH (21:30)
[2024-09-16] MEDS: fentaNYL 50 MCG/ML SDV IVPUSH ONE (21:38)
[2024-09-16] MEDS: Midazolam 50 MG in Premix Bag 1 BAG IV SCH (22:05)
[2024-09-16 22:12] LABS: BASE EXCESS ARTERIAL -6.7 mm/L; BICARBONATE,ARTERIAL 19.5 mmol/L (22.0-26.0); METHEMOGLOBIN 0.9 %; OXYHEMOGLOBIN 95.6 %; PCO2 ARTERIAL 44.3 mmHg (35.0-42.0); TOTAL HEMOGLOBIN 11.4 g/dL (13.5-18.0)
[2024-09-16 22:15] LABS: O2 SATURATION ARTERIAL > 99.3 % (95.0-98.0)
[2024-09-16] MEDS: Sodium Chloride 0.9% 50 ML ONE (22:18)
[2024-09-16] MEDS: Midazolam 1 MG/ML 5 ML SDV ONE ×3 (22:18→23:27)
[2024-09-16] MEDS: Midazolam 1 MG/ML 5 ML SDV IVPUSH ONE ×2 (22:30→23:27)
[2024-09-16 23:13] LABS: INR 1.4; PROTHROMBIN TIME 14.2 sec (9.2-10.6)
[2024-09-16] MEDS: Heparin Sodium 5,000 Units/ML Vial IVPUSH ONE (23:13)
[2024-09-16] MEDS: Heparin Sodium/D5W 25,000 UNITS/500 ML BAG IV SCH (23:19)
[2024-09-17 02:20] VITALS: BP 111/76; PULSE 64
== END 2024-09-17 02:00 ==
LOC: JP.ED 20:07 → EDBD 20:07 → MERGE 20:07 → JP.ED 09-17 02:00
DX: S30.810A Abrasion of lower back and pelvis, initial encounter (principal); I46.9 Cardiac arrest, cause unspecified; I21.4 Non-ST elevation (NSTEMI) myocardial infarction; E72.20 Disorder of urea cycle metabolism, unspecified; V49.40XA Driver injured in collision with unspecified motor vehicles in traffic accident, initial encounter; Y93.89 Activity, other specified
CPT/HCPCS: 36415; 36600; 43752; 51702; 70450; 71045; 71260; 72125; 72170; 74177; 76377; 80053; 80305; 80307; 81001; 82140; 82803; 83605; 83690; 84484; 85025; 85610; 93005; 93010; 96365; 96366; 96368; 96375; 99291; 99292; G0390; J1200; J1644; J2250; J2919; J3010; Q9967